=== PATIENT | male | born 1965 | race Caucasian/White ===

== ENCOUNTER 2017-12-11 17:28 | Emergency (ER) | payer MEDICAID ==
[~2017-12-11] VITALS: Ht 165.1 cm; Wt 86.2 kg
[2017-12-11 17:34] VITALS: Ht 165.1 cm; Wt 86.2 kg
[2017-12-11 19:42] VITALS: BP 115/70
== END 2017-12-11 19:42 | disposition home or self-care (01) ==
LOC: ED 17:28
DX: K20.8 Other esophagitis (principal); Z90.49 Acquired absence of other specified parts of digestive tract

== ENCOUNTER 2018-05-30 05:00 | Emergency (ER) | payer MEDICAID ==
[~2018-05-30] VITALS: Ht 165.1 cm; Wt 87.7 kg
[2018-05-30 05:08] VITALS: Ht 165.1 cm; Wt 87.7 kg
[2018-05-30 05:46] VITALS: BP 126/81
== END 2018-05-30 05:46 | disposition home or self-care (01) ==
LOC: ED 05:00
DX: J20.9 Acute bronchitis, unspecified (principal); Z90.89 Acquired absence of other organs

== ENCOUNTER 2019-05-30 09:35 | Emergency (ER) | payer MEDICAID ==
[~2019-05-30] VITALS: Ht 165.1 cm; Wt 88.5 kg
[2019-05-30 09:45] VITALS: Ht 165.1 cm; Wt 88.5 kg
[2019-05-30 11:10] VITALS: BP 132/75
== END 2019-05-30 11:10 | disposition home or self-care (01) ==
LOC: ED 09:35
DX: J03.90 Acute tonsillitis, unspecified (principal); Z90.89 Acquired absence of other organs
CPT/HCPCS: J1885

== ENCOUNTER 2019-06-23 18:19 | Emergency (ER) | payer MEDICAID ==
[~2019-06-23] VITALS: Ht 165.1 cm; Wt 86.4 kg
[2019-06-23 18:36] VITALS: Ht 165.1 cm; Wt 86.4 kg
[2019-06-23 21:25] LABS: BASOPHIL % 0.4 % (0-2); PLATELET COUNT 179 x10^3mcL (130-400); RED CELL DISTRIBUTION WIDTH 13.7 % (11.5-14.5)
[2019-06-23 21:28] LABS: CALCIUM 9.3 mg/dL (8.5-10.1); CARBON DIOXIDE 27.6 mmol/L (21-32); CHLORIDE SERUM 102 mmol/L (98-107); CREATININE SERUM 1.1 mg/dL (0.7-1.3); GFR1 > 60 mL/min; GLUCOSE SERUM 84 mg/dL (74-106); POTASSIUM SERUM 3.6 mmol/L (3.5-5.1); SODIUM SERUM 138 mmol/L (136-145)
[2019-06-23 21:33] LABS: ALBUMIN 4.1 g/dL (3.4-5.0); ALKALINE PHOSPHATASE 71 U/L (46-116); ALT/SGPT 48 U/L (16-63); AST/SGOT 20 U/L (15-37); BILIRUBIN TOTAL 0.41 mg/dL (0.20-1.00)
[2019-06-23 21:40] LABS: TOTAL PROTEIN, SERUM 8.5 g/dL (6.4-8.2)
[2019-06-23 21:59] LABS: AMPHETAMINE QUAL UR NONE DETECTED (See below)
[2019-06-23 22:17] VITALS: BP 122/80
== END 2019-06-23 22:21 | disposition home or self-care (01) ==
LOC: ED 18:19
PROVIDERS: Emergency Medicine
DX: R00.2 Palpitations (principal)
CPT/HCPCS: 36415

== ENCOUNTER 2019-08-30 11:13 | Emergency (ER) | payer MEDICAID ==
[~2019-08-30] VITALS: Ht 167.6 cm; Wt 85.3 kg
[2019-08-30 11:16] VITALS: Ht 167.6 cm; Wt 85.3 kg
[2019-08-30 11:53] LABS: BASOPHIL % 0.5 % (0-2); PLATELET COUNT 156 x10^3mcL (130-400)
[2019-08-30 12:05] LABS: CALCIUM 8.7 mg/dL (8.5-10.1); CARBON DIOXIDE 28.9 mmol/L (21-32); CHLORIDE SERUM 104 mmol/L (98-107); GFR1 > 60 mL/min; GLUCOSE SERUM 162 mg/dL (74-106); POTASSIUM SERUM 3.8 mmol/L (3.5-5.1); SODIUM SERUM 141 mmol/L (136-145)
[2019-08-30 13:31] VITALS: BP 155/82
== END 2019-08-30 13:31 | disposition home or self-care (01) ==
LOC: ED 11:13
PROVIDERS: Emergency Medicine
DX: R07.89 Other chest pain (principal); R00.2 Palpitations
CPT/HCPCS: 36415